=== PATIENT | female | born 1965 | race Caucasian/White ===

== ENCOUNTER 2020-05-08 20:09 | Emergency (ER) | payer OTHER ==
[2020-05-08] MEDS ORDERED: ASPIRIN 325 MG TABLET PO ONE (20:40)
[2020-05-08] MEDS ORDERED: NITROGLYCERIN 0.4 MG/TAB 25 TAB/BOTTLE SL ONE (20:43)
[2020-05-08] MEDS ORDERED: NITROGLYCERIN 0.4 MG/TAB 25 TAB/BOTTLE ONE (20:44)
--- NOTE | 2020-05-08 20:49 | ER Document Report ---
ED Cardiac - General Chief Complaint: Chest Pain > 30 Stated Complaint: SEVERE CHEST PAIN Time Seen by Provider: 05/08/20 20:36 Primary Care Provider: FROYLAN HOBSON JR, MD [Primary Care Provider] - Follow up as needed - [facility] Notes: Patient is a 54-year-old female with a past medical history of hypertension who presents with chest pain that started 30 minutes prior to arrival. She has never had pain like this before. She states it feels like sharp and pressure. It radiates to her neck. She states she feels short of breath with this. Pain does not radiate to her back. Has not taken any aspirin today. is in the room. He states that they were eating at [employer] when she developed chest pain midsternally. He states that initially he thought it was indigestion but it worsened. - Related Data Allergies/Adverse Reactions: ciprofloxacin [From Cipro] Allergy (Verified 05/08/20 20:37) tramadol [From Ultram] Adverse Reaction (Verified 05/08/20 20:37) Past Medical History - General Information source: Patient - Social History Smoking Status: Never Smoker Family History: CAD - Past Medical History Cardiac Medical History: Reports: Hx Hypertension Review of Systems - Review of Systems Notes: CONSTITUTIONAL: No fever SKIN: No rash. CARDIOVASCULAR: Positive for chest pain. RESPIRATORY: Positive for shortness of breath. GASTROINTESTINAL: No abdominal pain. MUSCULOSKELETAL: No joint pain or swelling. NEUROLOGIC: No seizures. Positive for intermittent bilateral hand numbness. HEMATOLOGIC: No unusual bruising or bleeding. PSYCHIATRIC: No depression or anxiety. Physical Exam - Vital signs Vitals: Temp Pulse Resp BP Pulse Ox 97.7 F 92 20 154/95 H 100 05/08/20 20:17 05/08/20 20:17 05/08/20 20:17 05/08/20 20:17 05/08/20 20:17 - General In distress: Severe Notes: VITAL SIGNS: Within normal limits. GENERAL: Appears in acute distress due to chest pain. HEAD: Normal with no signs of head trauma. EARS: Hearing grossly intact. NOSE: Normal. NECK: Normal range of motion, no tenderness CHEST: Clear breath sounds bilaterally. No wheezes, rales, or rhonchi. CARDIAC: Regular rate and rhythm. S1 and S2, without murmurs, gallops, or rubs. VASCULAR: No Edema. Strong bilateral radial pulses. ABDOMEN: Normal and soft with no tenderness MUSCULOSKELETAL: Good range of motion of all major joints. Extremities without clubbing, cyanosis or edema. NEUROLOGICAL: Alert and oriented x 3. No focal sensory or strength deficits. Speech normal. Follows commands appropriately. PSYCHIATRIC: Normal Affect, judgement and mood. SKIN: Normal appearance with no rashes or lesions. Course - Re-evaluation Re-evalutation: 05/08/20 21:12 Patient had minimal relief with sublingual nitro. She will be started on nitro drip. She has also been given morphine as she is having significant pain. 05/09/20 03:01 Patient continuing to have pain. She is on a significant amount of nitro. She has had 2 - troponins. Her CTA does not show dissection or PE. There was a trace pericardial effusion. I repeated an EKG 3 separate times. She does have some dynamic changes that she initially had depressions in the lateral leads which resolved. I did discuss with our noodle press operator here. He recommended Toradol. I discussed with the noodle press operator at [facility] who recommended I obtain an ESR and CRP to rule out a pericarditis or myocarditis. Both of those tests were negative. I called back [facility] and she was accepted to their facility. We are unable to keep her here as she may need a cardiac catheterization. Accepting doctor is Dr. Ornelas. I discussed this with the patient, she is agreeable. She is continuing to have chest pain. I will give her another dose of morphine. Currently awaiting transport and bed assignment at [facility]. 05/09/20 06:27 - Vital Signs Vital signs: Temp Pulse Resp BP Pulse Ox 98 F 80 17 110/79 98 05/09/20 08:31 05/08/20 20:34 05/09/20 08:31 05/09/20 08:31 05/09/20 08:31 - Laboratory Results Result Diagrams: 05/08/20 20:35 05/08/20 20:35 Laboratory Results Interpreted: 05/08/20 20:35 Glucose 156 H Critical Laboratory Results Reviewed: No Critical Results - Radiology Results Critical Radiology Results Reviewed: No Critical Results - EKG Interpretation by Me EKG shows normal: Sinus rhythm Rate: Normal When compared to previous EKG there are: Previous EKG unavailable Additional EKG results interpreted by me: 05/08/20 21:02 Sinus rhythm at a rate of 94. Significant artifact present. ST depressions in the lateral leads. No previous EKG available for comparison. Discharge - Discharge Clinical Impression: Chest pain Qualifiers: Chest pain type: unspecified Qualified Code(s): R07.9 - Chest pain, unspecified Condition: Stable Disposition: [facility] Referrals: FROYLAN HOBSON JR, MD [Primary Care Provider] - Follow up as needed
[2020-05-08] MEDS ORDERED: MORPHINE SULFATE 10 MG/ML INJ IV ONE (20:51)
[2020-05-08] MEDS ORDERED: NITROGLYCERIN/D5W 50 MG/250 ML RTUINJ IV PRN (20:53)
[2020-05-08 20:54] LABS: ABSOLUTE MONOCYTES (AUTO) 0.3 10^3/uL (0.1-1.4); ABSOLUTE NEUT (AUTO) 3.8 10^3/uL (1.7-8.2); TOTAL CELLS COUNTED % (AUTO) 100 %
[2020-05-08 21:00] LABS: BASOPHILS % (AUTO) 0.5 % (0-2); EOSINOPHILS % (AUTO) 0.5 % (0-6); HEMATOCRIT 37.6 % (36.0-47.0); HEMOGLOBIN 13.4 g/dL (12.0-15.5); LYMPHOCYTES % (AUTO) 32.1 % (13-45); MEAN CORPUSCULAR HEMOGLOBIN 31.2 pg (27.0-33.4); MEAN CORPUSCULAR HGB CONC 35.7 g/dL (32.0-36.0); MEAN CORPUSCULAR VOLUME 87 fl (80-97); MONOCYTES % (AUTO) 5.5 % (3-13); PLATELET COUNT 237 10^3/uL (150-450); RED BLOOD COUNT 4.31 10^6/uL (3.72-5.28); RED CELL DISTRIBUTION WIDTH 12.4 % (11.5-14.0); SEGMENTED NEUTROPHILS % (AUTO) 61.4 % (42-78); WHITE BLOOD COUNT 6.1 10^3/uL (4.0-10.5)
[2020-05-08] MEDS ORDERED: NORMAL SALINE 1000 ML 1,000 ML IV ONE (21:07)
[2020-05-08 21:18] LABS: CREATINE KINASE MB 0.72 ng/mL (<4.55)
[2020-05-08 21:19] LABS: TROPONIN I < 0.012 ng/mL
[2020-05-08 21:36] LABS: ALBUMIN 4.6 g/dL (3.5-5.0); ALKALINE PHOSPHATASE 69 U/L (38-126); ANION GAP 8 (5-19); ASPARTATE AMINO TRANSFERASE 24 U/L (14-36); BILIRUBIN,TOTAL 0.4 mg/dL (0.2-1.3); BLOOD UREA NITROGEN 16 mg/dL (7-20); CALCIUM 9.4 mg/dL (8.4-10.2); CARBON DIOXIDE 29 mmol/L (22-30); CHLORIDE 102 mmol/L (98-107); CREATINE KINASE 99 U/L (30-135); GLUCOSE 156 mg/dL (75-110); POTASSIUM 3.7 mmol/L (3.6-5.0); TOTAL PROTEIN 7.3 g/dL (6.3-8.2)
--- NOTE | 2020-05-08 21:36 | RADIOLOGY REPORT (SQ) ---
AP Portable chest: 05/08/2020 8:35 PM PRACTICE CONSULTANT History: 54-year old patient with chest pain . Comparison: None available Findings: The cardiomediastinal silhouette is normal in size. No pneumothorax is seen. No acute airspace opacities are seen. No discrete pleural effusion is apparent. Impression: No acute airspace opacities are seen.
[2020-05-08] MEDS ORDERED: LIDOCAINE 2% VISCOUS SOLN 15 ML UDCUP PO ONE (22:19)
[2020-05-08] MEDS ORDERED: METOCLOPRAMIDE HCL ORAL SOLN 10 MG/10 ML UDCUP PO ONE (22:19)
[2020-05-08] MEDS ORDERED: MAG HYDROX/AL HYDROX/SIMETH SUSP 30 ML UDCUP PO ONE (22:19)
--- NOTE | 2020-05-08 23:06 | RADIOLOGY REPORT (SQ) ---
CT angiogram chest with contrast on 05/08/2020 at 10:26 PM CLINICAL INDICATION: Chest pain TECHNIQUE: Multiple axial images are obtained throughout the chest following the administration of IV contrast. Computer generated 3D reconstructions/MIPS were performed. This exam was performed according to our departmental dose-optimization program, which includes automated exposure control, adjustment of the mA and/or kV according to patient size and/or use of iterative reconstruction technique. Total DLP is 525.9 mGy*cm. COMPARISON: None FINDINGS: There is no thoracic aortic aneurysm or dissection. There is trace pericardial effusion. There is no pleural effusion. There is no thoracic adenopathy. There is a 1.9 cm low-density right adrenal nodule that measures 24 Hounsfield units and most likely represents an adenoma. Would recommend one year follow up adrenal washout protocol CT. Limited visualized upper abdomen is otherwise unremarkable. There is no thoracic adenopathy. There are no filling defects within the pulmonary arteries to suggest pulmonary embolus. There is evidence of calcified granulomatous disease in the chest. There is minimal bilateral dependent atelectasis. The lungs are otherwise clear. No acute bony abnormality is noted. IMPRESSION: 1. No evidence of pulmonary embolus. 2. Trace pericardial effusion. 3. 1.9 cm probable right adrenal adenoma, recommend one-year follow-up adrenal washout protocol CT.
[2020-05-09] MEDS ORDERED: KETOROLAC TROMETHAMINE INJ/PF 30 MG/1 ML SDV IV ONE (01:03)
[2020-05-09] MEDS ORDERED: MORPHINE SULFATE 10 MG/ML INJ IV ONE (03:03)
[2020-05-09] MEDS ORDERED: ONDANSETRON HCL INJ/PF 4 MG/2 ML SDV ONE (03:24)
[2020-05-09] MEDS ORDERED: ONDANSETRON HCL INJ/PF 4 MG/2 ML SDV IV ONE ×2 (03:26)
--- NOTE | 2020-05-09 08:43 | ER Document Report ---
Doctor's Note Notes: 05/09/20 08:43 Transport is here to take the patient to [facility]. Serial troponins have been undetectable. Vital signs are stable. Patient is stable for transport.
[2020-05-09 08:57] VITALS: BP 110/79
--- NOTE | 2020-05-09 11:54 | EKG REPORT ---
SEVERITY:- ABNORMAL ECG - SINUS RHYTHM PROBABLE ANTEROSEPTAL INFARCT, AGE INDETERM : Confirmed by: Vinh Love MD 09-May-2020 11:53:30
--- NOTE | 2020-05-09 11:54 | EKG REPORT ---
SEVERITY:- NORMAL ECG - SINUS RHYTHM : Confirmed by: Vinh Love MD 09-May-2020 11:53:39
--- NOTE | 2020-05-09 11:54 | EKG REPORT ---
SEVERITY:- BORDERLINE ECG - SINUS RHYTHM PROBABLE LEFT ATRIAL ABNORMALITY BORDERLINE ST DEPRESSION, DIFFUSE LEADS : Confirmed by: Vinh Love MD 09-May-2020 11:53:50
== END 2020-05-09 08:50 | disposition short-term general hospital (02) ==
LOC: ER 20:09
DX: I31.3 Pericardial effusion (noninflammatory) (principal); R07.89 Other chest pain; R06.02 Shortness of breath; I10 Essential (primary) hypertension; Z88.1 Allergy status to other antibiotic agents; Z82.49 Family history of ischemic heart disease and other diseases of the circulatory system; Z20.828 Contact with and (suspected) exposure to other viral communicable diseases
CPT/HCPCS: 93005 ×2; 96376; 99285; 96375 ×2; 96365; 96366 ×2; 36415; 82553; 82550; 85025; 85652; 0241U ×4; 86140; 80053; 84484; 71045; 71275; 93010 ×2; J3490 ×2; J1885; J2270 ×2; J2405; J7030; C9803